=== PATIENT | female | born 1975 | race American Indian/Alaskan Native ===

== ENCOUNTER 2019-06-20 17:15 | Emergency (ER) | payer MEDICARE ==
--- NOTE | 2019-06-20 17:28 | Emergency Department Report ---
Blank Doc - Documentation Documentation: 44-year-old female that presents with right arm shaking and right sided chest pain. This initial assessment/diagnostic orders/clinical plan/treatment(s) is/are subject to change based on patient's health status, clinical progression and re- assessment by fellow clinical providers in the ED. Further treatment and workup at subsequent clinical providers discretion. Patient/guardians urged not to elope from the ED as their condition may be serious if not clinically assessed and managed. Initial orders include: 1- Patient sent to [facility] for further evaluation and treatment 2- labs 3- EKG 4- UA
[2019-06-20 18:11] LABS: Bacteria,Urine 1+ /HPF (Negative); Bilirubin,Urine NEG (Negative); Blood,Urine NEG (Negative); Color,Urine Yellow (Yellow); Protein,Urine <15 mg/dL mg/dL (Negative); Urobilinogen,Urine < 2.0 mg/dL (<2.0); WBC,Urine < 1.0 /HPF (0.0-6.0)
[2019-06-20 18:15] LABS: Basophils % (Auto) 0.5 % (0.0-1.8); Eosinophils # (Auto) 0.1 K/mm3 (0.0-0.4); Eosinophils % (Auto) 1.1 % (0.0-4.3); Hematocrit 36.9 % (30.3-42.9); Hemoglobin 12.3 gm/dl (10.1-14.3); Lymphocytes # (Auto) 2.9 K/mm3 (1.2-5.4); Lymphocytes % (Auto) 41.9 % (13.4-35.0); Mean Corpuscular HGB Conc 33 % (30-34); Mean Corpuscular Volume 95 fl (79-97); Monocytes # (Auto) 0.4 K/mm3 (0.0-0.8); Monocytes % (Auto) 6.1 % (0.0-7.3); Platelet Count 321 K/mm3 (140-440); Red Blood Count 3.88 M/mm3 (3.65-5.03)
[2019-06-20 18:39] LABS: Alanine Aminotransferase 20 units/L (7-56); Albumin 4.3 g/dL (3.9-5); BUN/Creatinine Ratio 9; Blood Urea Nitrogen 11 mg/dL (7-17); Calcium 8.9 mg/dL (8.4-10.2); Hemolysis Index 2
--- NOTE | 2019-06-20 19:47 | Emergency Department Report ---
ED General Adult HPI - General Chief complaint: Weakness Stated complaint: RT ARM SHAKING Time Seen by Provider: 06/20/19 17:26 Source: patient Mode of arrival: Ambulatory Limitations: No Limitations - History of Present Illness Initial comments: 44-year-old female with history of HIV, prior CVA (states deficit from CVA is slow reaction time), migraines, chronic back pain, chronic shoulder pain, presents to ED with right arm shaking. Patient states she was in [employer] today and right arm began to shake uncontrollably. Patient states that lasted for approximately 2-3 minutes. Patient states these episodes were intermittent over 2 hours. Have now resolved. Patient denies any associated arm pain. She reports baseline numbness in the 4th and 5th fingers bilaterally. States she had this evaluated by EMG and was told that she has carpal tunnel. Pt also reports right chest soreness and frontal headaches x 3 weeks. Reports some mild associated nausea. She denies fever, shortness of breath. States the headaches are not as bad as her past migraines. -: This afternoon Location: right, upper extremity Radiation: non-radiation Quality: other (PAINLESS) Consistency: intermittent, now resolved Improves with: none Worsens with: none Associated Symptoms: chest pain, headaches, nausea/vomiting. denies: cough, fever/chills, shortness of breath - Related Data Allergies Allergy/AdvReac Type Severity Reaction Status Date / Time baclofen Allergy Unknown Verified 06/20/19 17:26 cephalexin [From Keflex] Allergy Anaphylaxis Verified 06/20/19 17:26 sulfamethoxazole Allergy Unknown Verified 06/20/19 17:26 [From Bactrim] trimethoprim [From Bactrim] Allergy Unknown Verified 06/20/19 17:26 ED Review of Systems ROS: Stated complaint: CHEST PAIN/RT ARM WEAKNESS Other details as noted in HPI Comment: All other systems reviewed and negative Constitutional: denies: chills, fever Respiratory: denies: cough, shortness of breath Cardiovascular: chest pain Gastrointestinal: nausea. denies: abdominal pain, vomiting Neurological: headache, other (reports right arm tremor) ED Past Medical Hx - Past Medical History Previous Medical History?: Yes Hx CVA: Yes (TIA) Hx Psychiatric Treatment: Yes (bipolar, manic depression) Hx HIV: Yes (ON [facility]TAR[place]) Additional medical history: LS DJD, LEFT TORN ROTATOR CUFF - Surgical History Past Surgical History?: Yes Additional Surgical History: TUBES IN EARS, T AND A, GASTRIC BYPASS,,COLECTOMY, TUMMY TUCK,EXPLORTORY SURG, HERNIA REPAIR X2,CARPEL TUNNEL, LUMPHNODE REMOVED FROM LEFT NECK - Social History Smoking Status: Never Smoker ED Physical Exam - General Limitations: No Limitations General appearance: alert, in no apparent distress - Head Head exam: Present: atraumatic, normocephalic - Eye Eye exam: Present: normal appearance, EOMI - ENT ENT exam: Present: mucous membranes moist - Neck Neck exam: Present: normal inspection - Respiratory Respiratory exam: Present: normal lung sounds bilaterally, chest wall tenderness. Absent: respiratory distress - Cardiovascular Cardiovascular Exam: Present: regular rate, normal rhythm - GI/Abdominal GI/Abdominal exam: Present: soft. Absent: distended, tenderness - Extremities Exam Extremities exam: Present: normal inspection, full ROM. Absent: tenderness - Neurological Exam Neurological exam: Present: alert, oriented X3, CN II-XII intact, other (strength in BUE 5/5, sensation intact except for paresthesias in bilateral 4th and 5th fingers; no tremor present on exam) - Psychiatric Psychiatric exam: Present: normal affect, normal mood - Skin Skin exam: Present: warm, dry, intact, normal color ED Course Vital Signs 06/20/19 06/20/19 17:27 21:11 Temperature 98.4 F 98.6 F Pulse Rate 86 72 Respiratory 18 16 Rate Blood Pressure 137/98 Blood Pressure 115/83 [Right] O2 Sat by Pulse 98 97 Oximetry ED Medical Decision Making - Lab Data Result diagrams: 06/20/19 17:54 06/20/19 17:54 - EKG Data -: EKG Interpreted by De EKG shows normal: sinus rhythm, axis, intervals, QRS complexes, ST-T waves Rate: normal - EKG Data Interpretation: no acute changes - Radiology Data Radiology results: report reviewed, image reviewed - Medical Decision Making - focal seizure vs intention tremor - no shaking present while in ED - CT Head negative for any abnormalities - remainder of workup unremarkable - neurology f/u advised - return precautions given - Differential Diagnosis focal seizure, intracranial mass, intention tremor Critical care attestation.: If time is entered above; I have spent that time in minutes in the direct care of this critically ill patient, excluding procedure time. ED Disposition Clinical Impression: Tremor, Chest wall pain Disposition: TO HOME OR SELFCARE Is pt being admited?: No Condition: Stable Instructions: Chest Pain (ED), New-Onset Seizure in Adults (ED) Referrals: PRIMARY CARE, [Primary Care Provider] - 3-5 Days MONAE BLANTON MD [Referring] - 2-3 Days Time of Disposition: 21:00
--- NOTE | 2019-06-20 20:13 | Cat Scan Report ---
Head CT without intravenous contrast INDICATION: Headache COMPARISON: None FINDINGS: The ventricles are normal in size and position. No hemorrhage or extra-axial fluid collecti on. No edema or mass effect. No focal infarct seen. Portions of the sinuses visualized are clear. No skull fracture identified. 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 IMPRESSION: Negative head CT Automated exposure control was utilized to diminish radiation dose Signer Name: Matt Rodriguez MD Signed: 06/20/2019 8:09 PM Workstation Name: [id number]
--- NOTE | 2019-06-20 20:45 | XRay Report ---
CHEST 1 VIEW 06/20/2019 8:25 PM INDICATION / CLINICAL INFORMATION: chest pain. COMPARISON: 07/07/07 FINDINGS: SUPPORT DEVICES: None. HEART / MEDIASTINUM: Heart is normal size. Implantable cardiac loop recorder is present. LUNGS / PLEURA: No significant pulmonary or pleural abnormality. No pneumothorax. ADDITIONAL FINDINGS: No significant additional findings. IMPRESSION: 1. No acute findings. Signer Name: Carlos Mack MD Signed: 06/20/2019 8:41 PM Workstation Name: [id number]
[2019-06-20 21:12] VITALS: BP 115/83
== END 2019-06-20 21:11 | disposition home or self-care (01) ==
LOC: ED 17:15
DX: R07.89 Other chest pain (principal); R25.1 Tremor, unspecified; Z88.8 Allergy status to other drugs, medicaments and biological substances; Z21 Asymptomatic human immunodeficiency virus [HIV] infection status; Z98.890 Other specified postprocedural states; Z86.73 Personal history of transient ischemic attack (TIA), and cerebral infarction without residual deficits
CPT/HCPCS: 36415; 70450; 71045; 80053; 81001; 84484; 85025; 93005; 93010